=== PATIENT | female | born 1975 | race Caucasian/White ===

== ENCOUNTER → 2018-01-03 | Outpatient (CLI) | payer BC | END | disposition home or self-care (01) | LOC: SHCH 13:19 | PROVIDERS: ATTEND Internal Medicine Cardiovascular Disease | DX: R00.2 Palpitations (principal) | CPT/HCPCS: 93306 ==

== ENCOUNTER → 2021-04-15 | Outpatient (CLI) | payer BC | END | disposition home or self-care (01) | LOC: SHCH 15:34 | PROVIDERS: ATTEND Internal Medicine Cardiovascular Disease | DX: I08.0 Rheumatic disorders of both mitral and aortic valves (principal); I49.3 Ventricular premature depolarization | CPT/HCPCS: 93306; 93356 ==

== ENCOUNTER → 2025-04-10 | Outpatient (CLI) | payer BC | END | disposition home or self-care (01) | LOC: RAH 09:45 | PROVIDERS: ATTEND Obstetrics & Gynecology | DX: R92.2 Inconclusive mammogram (principal) | CPT/HCPCS: 76641; 77065 ==

== ENCOUNTER 2025-08-12 16:25 | Inpatient (IN) | payer BC ==
[~2025-08-12] VITALS: Ht 167.6 cm; Wt 65.4 kg
[2025-08-12 16:46] LABS: APPEARANCE,URINE CLOUDY (CLEAR); GLUCOSE, URINE (UA) NEGATIVE (NEGATIVE); LEUKOCYTE ESTERASE ,URINE NEGATIVE Leu/uL (NEGATIVE); NITRATE,URINE NEGATIVE (NEGATIVE); OCCULT BLOOD,URINE LARGE (NEGATIVE)
[2025-08-12 16:47] LABS: ADD UA MICROSCOPIC YES
[2025-08-12 16:49] LABS: SQUAMOUS EPITHELIAL CELL,UR RARE /HPF (0-2); UNCLASSIFIED CRYSTAL 1 /HPF (None Seen)
[2025-08-12] MEDS: 0.9%NACL 1000ML 1,000 ML IV ONE (17:03)
[2025-08-12 17:04] LABS: IMMATURE GRANULOCYTE ABSOLUTE 0.01 K/uL (0-1); NUCLEATED RED BLOOD CELLS 0.0 % (0.0-0.19); PLATELET COUNT (AUTO) 284 K/uL (130-400); RED BLOOD CELL COUNT(AUTO) 3.99 MIL/uL (4.00-5.50); RED CELL DISTRIBUTION WIDTH 12.8 % (11.0-15.5); WHITE BLOOD COUNT (AUTO) 4.7 K/uL (4.8-10.8)
[2025-08-12 17:09] LABS: CREATININE 0.7 mg/dL (0.5-1.0); GLOMERULAR FILTR. RATE CALC 105.0 mL/min (>90); GLUCOSE,RANDOM 91.0 mg/dL (70-105); SODIUM SERUM 139.0 mmol/L (136-145); UREA NITROGEN, BLOOD 13.0 mg/dL (7-18)
--- NOTE | 2025-08-12 17:12 | ERN ---
General Chief Complaint: Flank Pain Stated Complaint: FLANK PAIN Time Seen by MD: 16:26 Source: patient History of Present Illness Initial Comments PATIENT IS A 50-YEAR-OLD FEMALE COMING IN COMPLAINING OF RIGHT FLANK PAIN. PER PATIENT THIS PAIN BEGAN THREE DAYS AGO. PATIENT STATES THAT THE PAIN IS SHARP PRESENT IN THE RIGHT FLANK REGION RADIATES TO THE RIGHT INGUINAL AREA. Allergies: Coded Allergies: iodine (Unverified Allergy, Severe, RASH AND FEVER, 04/04/14) Past Medical History Past Medical History: Migraines Past Surgical History: Hysterectomy ROS Dictation CONSTITUTIONAL: NO CHILLS, NO FEVER, NO WEAKNESS, NO DIAPHORESIS, NO MALAISE. HEAD/FACE: NO SIGNS OF TRAUMA. EENT: NO EYE PAIN, NO BLURRED VISION, NO TEARING, NO DOUBLE VISION, NO EAR PAIN, NO EAR DISCHARGE, NO NOSE PAIN, NO NASAL CONGESTION, NO THROAT PAIN, NO THROAT SWELLING, NO MOUTH PAIN. RESPIRATORY: NO COUGH, NO ORTHOPNEA, NO SOB, NO STRIDOR, NO WHEEZING. CARDIOVASCULAR: NO CHEST PAIN, NO EDEMA, NO PALPITATIONS, NO SYNCOPE. GASTROINTESTINAL/ABDOMINAL: NO ABDOMINAL PAIN, NO CONSTIPATION, NO DIARRHEA, NO NAUSEA, NO VOMITING. GENITOURINARY: NO ABNORMAL DISCHARGE, NO DYSURIA, NO FREQUENT URINATION, NO HEMATURIA. NO COMPLAINTS OF PAIN IN THE GENITALS. MUSCULOSKELETAL: NO BACK PAIN, NO GOUT, NO JOINT PAIN, NO JOINT SWELLING, NO MUSCLE PAIN, NO MUSCLE STIFFNESS, NO NECK PAIN. INTEGUMENTARY: NO CHANGE IN COLOR, NO CHANGE IN HAIR/NAILS, NO DRYNESS, NO LESION, NO LUMPS, NO RASH. NEUROLOGICAL/PSYCH: NO ANXIETY, NOT DEPRESSED, NO EMOTIONAL PROBLEM, NO HE ADACHE, NO NUMBNESS, NO PRE-EXISTING DEFICIT, NO HISTORY OF SEIZURES, NO TREMORS, NO WEAKNESS. HEMATOLOGIC/LYMPHATIC: NOT ANEMIC, NO HISTORY OF BLOOD CLOTS, NO APPARENT BLEEDING, NO BRUISING, GLANDS NOT SWOLLEN. ALL SYSTEMS NEGATIVE, EXCEPT NOTED. Physical Exam Physical Exam Dictation VITAL SIGNS: REVIEWED. GENERAL APPEARANCE: ALERT, ORIENTED X3, NO ACUTE DISTRESS, OBESE. HEAD AND FACE: NON-TRAUMATIC. EYES: PERRL, PINK CONJUNCTIVAS, EYELID NO TRAUMA, ANTERIOR CHAMBER CLEAR. EARS: PINNAS INTACT AND NO SIGNS OF TRAUMA OR ERYTHEMA. EAR CANALS CLEAR AND NO DISCHARGE. TMS NO ERYTHEMA. NOSE: NO DISCHARGE, NO BLEEDING. OROPHARYNX: MOUTH NORMAL, TEETH NO CARIES, TONGUE PINK. PHARYNX CLEAR, NO ERYTHEMA. TONSILS NO EXUDATES, NO ABSCESSES NOTED. MUCOUS MEMBRANE MOIST. NECK: SUPPLE, NON-TENDER, NO THYROMEGALY, NO MASSES, NO JVD, NO BRUITS. BREAST: DEFERRED. CHEST: NO TENDERNESS, NO CREPITUS, NO PARADOXICAL MOVEMENT, NO RETRACTIONS. LUNGS: CLEAR, WELL-VENTILATED, SYMMETRIC, NO RALES, NO WHEEZING, NO RHONCHI, NO STRIDOR, GOOD BREATH SOUNDS BILATERALLY. HEART: REGULAR RATE, REGULAR RHYTHM, NO MURMUR, NO GALLOPS. VASCULAR: NO PERIPHERAL EDEMA. ABDOMEN: SOFT, POSITIVE BOWEL SOUNDS, NONDISTENDED, NO GUARDING, NONTENDER, NO REBOUND, NO MASSES NO HEPATOMEGALY, NO SPLENOMEGALY, NO WOOD'S SIGN, NO HERNIAS. RECTAL: DEFERRED. GENITAL: DEFERRED. NEUROLOGICAL: NORMAL SPEECH, GROSS MOTOR FUNCTION INTACT, GROSS SENSORY FUNCTION INTACT. MUSCULOSKELETAL: NECK NONTENDER, FULL RANGE OF MOTION, BACK NONTENDER, FULL RANGE OF MOTION. EXTREMITIES: NONTENDER, FULL RANGE OF MOTION. SKIN: COLOR PINK, DRY, NO TURGOR, NO RASH, NO LACERATIONS, NO ABRASIONS, NO CONTUSIONS. LYMPHATICS: DEFERRED. Results Laboratory and Microbiology Lab and Micro Result Laboratory Tests Test 08/12/25 16:40 08/12/25 16:55 Urine Color LIGHT-YELLOW (YELLOW) Urine Appearance CLOUDY (CLEAR) H Urine pH 7.0 (5.0-8.0) Urine Specific [place] 1.005 (1.001-1.031) Urine Protein NEGATIVE mg/dL (NEGATIVE) Urine Glucose (UA) NEGATIVE mg/dL (NEGATIVE) Urine Ketones NEGATIVE mg/dL (NEGATIVE) Urine Occult Blood LARGE (NEGATIVE) H Urine Nitrate NEGATIVE (NEGATIVE) Urine Bilirubin NEGATIVE mg/dL (NEGATIVE) Urine Urobilinogen 0.2 mg/dL (0.2-1.0) Urine Leukocyte Esterase NEGATIVE [place]/uL Urine RBC 51-100 /HPF (0-1) H Urine WBC 11-25 /HPF (0-1) H Urine Squamous Epithelial Cells RARE /HPF (0-2) Urine Other Crystals (Auto) 1 /HPF (None Seen) Urine Bacteria RARE /HPF (None Seen) White Blood Count 4.7 K/uL (4.8-10.8) L Red Blood Count 3.99 MIL/uL (4.00-5.50) L Hemoglobin 12.5 g/dL (12.0-16.0) Hematocrit 38.2 % (36-48) Mean Corpuscular Volume 95.7 fL (79-99) Mean Corpuscular Hemoglobin 31.3 pg (27.0-33.0) Mean Corpuscular Hemoglobin Concent 32.7 g/dL (32.0-36.0) Red Cell Distribution Width 12.8 % (11.0-15.5) Platelet Count 284 K/uL (130-400) Mean Platelet Volume 9.9 fL (7.5-10.5) Immature Granulocyte % (Auto) 0.2 % (0-1) Neutrophils (%) (Auto) 60.3 % (40.0-77.0) Lymphocytes (%) (Auto) 29.9 % (21.0-51.0) Monocytes (%) (Auto) 8.4 % (3.0-13.0) Eosinophils (%) (Auto) 0.6 % (0.0-8.0) Basophils (%) (Auto) 0.6 % (0.0-5.0) Neutrophils # (Auto) 2.8 K/uL (1.8-7.7) Lymphocytes # (Auto) 1.4 K/uL (1.0-4.8) Monocytes # (Auto) 0.4 K/uL (0.1-1.0) Eosinophils # (Auto) 0.03 K/uL (0.00-0.70) Basophils # (Auto) 0.03 K/uL (0.00-0.20) Absolute Immature Granulocyte (auto 0.01 K/uL (0-1) Nucleated Red Blood Cells 0.0 % (0.0-0.19) Sodium Level 139 mmol/L (136-145) Potassium Level 4.1 mmol/L (3.5-5.1) Chloride Level 102 mmol/L (101-111) Carbon Dioxide Level 28 mmol/L (21-32) Blood Urea Nitrogen 13 mg/dL (7-18) Creatinine 0.7 mg/dL (0.5-1.0) Glomerular Filtration Rate Calc 105 mL/min (>90) Random Glucose 91 mg/dL (70-105) Total Calcium 8.9 mg/dL (8.5-10.1) Labs Reviewed?: Yes EKG/XRAY/US/CT/MRI CT Scan Comment [facility] [address] [place] [address] IMAGING REPORT Signed PATIENT: VIANCA BENTON MR#: [id number] : 1975 SEX: F AGE: 50 LOCATION: [facility] ORDER 1630 STATUS: REG ER REPORT#: [id number] SERVICE 1629 REASON: ABD PAIN ORDERING PHYSICIAN: ESTER VILLEGAS MD PROCEDURE: ABD PEL WO - CT ABDOMEN/PELVIS W/O CONTRAST EXAM: CT Abdomen and Pelvis Without IV contrast CLINICAL HISTORY: ABD PAIN TECHNIQUE: Axial computed tomography images of the abdomen and pelvis without intravenous contrast. CONTRAST: No IV contrast. COMPARISON: None provided. FINDINGS: LUNG BASES: The visualized lung bases are clear. No pleural effusions or focal pulmonary lesions are seen. LIVER: Normal in size, shape, and attenuation. No focal hepatic lesion or intrahepatic biliary dilatation. GALLBLADDER AND BILE DUCTS: The gallbladder appears normal. No radio-opaque gallstones or pericholecystic fluid. No biliary ductal dilatation is seen. PANCREAS: Normal in size and contour. No focal lesion or peripancreatic inflammatory change. SPLEEN: Normal in size and density. No focal splenic lesions. ADRENAL GLANDS: Bilateral adrenal glands are normal in size and morphology. KIDNEYS, URETERS, AND BLADDER: The right kidney measures 9.1 ??? 5.4 cm and shows an upper pole calculus measuring 0.4 cm. The left kidney measures 10.3 ??? 5.0 cm and shows a lower pole calculus measuring 0.2 cm. There is mild left hydronephrosis due to a calculus measuring 0.7 cm at the left pelviureteric junction (PUJ). No perinephric fat stranding or cortical thinning is noted. The urinary bladder appears normal in outline and wall thickness. STOMACH AND BOWEL: Stomach and small bowel loops are unremarkable. The colon is mildly fecal loaded. No evidence of bowel obstruction, perforation, or colitis. APPENDIX: The appendix is normal in caliber with no periappendiceal inflammatory changes. PERITONEUM: No free intraperitoneal fluid or air. LYMPH NODES: No mesenteric, retroperitoneal, or pelvic lymphadenopathy. REPRODUCTIVE ORGANS: Uterus is not visualized, likely postoperative. No adnexal masses or pelvic fluid collections. VASCULATURE: Abdominal aorta and its major branches appear normal in caliber and course. No aneurysm or vascular calcification of significance. BONES: No acute or aggressive osseous abnormality. Visualized vertebrae and pelvic bones show normal alignment and density.IMPRESSION * Left pelviureteric junction calculus (0.7 cm) causing mild left hydronephrosis. * Bilatral kidney stones /[place] DICTATED BY: DINAH DUDLEY MD DATE: 08/12/251915 ELECTRONICALLY SIGNED BY: DINAH DUDLEY MD DATE: 08/12/251915 [facility] MDM: DIFFERENTIAL DIAGNOSIS: UVJ STONE, KIDNEY PAIN, RATIONALE: TESTS CONSIDERED AND ORDERED SECONDARY TO SHARED DECISION MAKING INCLUDE: PREVIOUS OUTSIDE RECORDS REVIEWED: OLD ER VISITS. RISK OF COMPLICATION AND/OR MORBIDITY OR MORTALITY OF PATIENT MANAGEMENT: NONE MEDICATIONS-PER MEDICATION RECONCILIATION NEED FOR HOSPITALIZATION: PATIENT DOES NOT MEET CRITERIA FOR HOSPITALIZATION. NEED FOR EMERGENCY MAJOR/MINOR SURGERY: NO THERE ARE NO SOCIAL CONCERNS WITH THIS PATIENT. PRESCRIPTION DRUG MANAGEMENT PRESCRIPTIONS WILL INCLUDE SYMPTOMATIC CARE PATIENT'S PRIOR EXTERNAL MEDICAL RECORDS FROM OTHER ER VISITS WERE REVIEWED BY ME INDICATED. PRIOR TESTING AND RESULTS FROM PREVIOUS VISITS WERE REVIEWED. PRIOR TESTS WERE TAKEN INTO ACCOUNT WITH MEDICAL DECISION MAKING AND RESOURCE UTILIZATION, INDEPENDENT HISTORIAN/HISTORIANS WERE USED TO OBTAIN COMPLETE MEDICAL HISTORY. I INDEPENDENTLY INTERPRETED THE TEST THAT WERE PERFORMED, RESULTS WERE REVIEWED BY ME AND CONSIDERED FINDINGS ON RADIOLOGY IF ORDERED. MEDICAL MANAGEMENT AND EXAMINATION INTERPRETATION DISCUSSIONS WERE HAD BY ME WITH OTHER QUALIFIED HEALTHCARE PROFESSIONALS INDICATED FOR THE PATIENT'S CARE. ADMITTED UNDER THE CARE OF HOSPITALIST GROUP FOR ONGOING MANAGEMENT OF PAIN. ED Course Orders Procedure Category Date Status Time Cbc With Differential LAB 08/12/25 Complete 16: Urinalysis Profile LAB 08/12/25 Complete 16:29 Ct Abdomen/Pelvis W/O CT 08/12/25 Resulted Contrast 16:29 Basic Metabolic Panel LAB 08/12/25 Complete 16:29 0.9%Nacl 1000ml (Ns PHA 08/12/25 Complete 1000ml) 16:30 Culture Urine ZAKIA 08/12/25 In Process 16:49 Ketorolac PHA 08/12/25 Complete Tromethamine 30mg/Ml 17:30 Current Medications Medications (Trade) Dose Ordered Sig/[place] Route PRN Reason Start Time Stop Time Status Last Admin Dose Admin Ketorolac Tromethamine (toRADol) 30 mg ONCE ONCE IVP 08/12/25 17:30 08/12/25 17:31 DC 08/12/25 17:12 Sodium Chloride 1,000 ml @ 0 mls/hr ONCE ONCE IV 08/12/25 16:30 08/12/25 16:32 DC 08/12/25 17:03 Vital Signs Date Time Temp Pulse Resp B/P (MAP) Pulse Ox O2 Delivery O2 Flow Rate FiO2 08/12/25 16:40 97.9 92 20 124/74 99 Room Air* 0 21 08/12/25 16:26 97.9 92 20 124/74 99 Room Air 0 DX & DISP Disposition: Inpatient Decision to Admit Time: 18:32 Departure Impression: Primary Impression: Ureterolithiasis Additional Impressions: Kidney pain, Intractable pain Condition: Stable Referrals: LEE ROLLINS MD (PCP) ESTER VILLEGAS MD Aug 12, 2025 17:12
--- NOTE | 2025-08-12 18:16 | HMCIMG ---
EXAM: CT Abdomen and Pelvis Without IV contrast CLINICAL HISTORY: ABD PAIN TECHNIQUE: Axial computed tomography images of the abdomen and pelvis without intravenous contrast. CONTRAST: No IV contrast. COMPARISON: None provided. FINDINGS: LUNG BASES: The visualized lung bases are clear. No pleural effusions or focal pulmonary lesions are seen. LIVER: Normal in size, shape, and attenuation. No focal hepatic lesion or intrahepatic biliary dilatation. GALLBLADDER AND BILE DUCTS: The gallbladder appears normal. No radio-opaque gallstones or pericholecystic fluid. No biliary ductal dilatation is seen. PANCREAS: Normal in size and contour. No focal lesion or peripancreatic inflammatory change. SPLEEN: Normal in size and density. No focal splenic lesions. ADRENAL GLANDS: Bilateral adrenal glands are normal in size and morphology. KIDNEYS, URETERS, AND BLADDER: The right kidney measures 9.1 ??? 5.4 cm and shows an upper pole calculus measuring 0.4 cm. The left kidney measures 10.3 ??? 5.0 cm and shows a lower pole calculus measuring 0.2 cm. There is mild left hydronephrosis due to a calculus measuring 0.7 cm at the left pelviureteric junction (PUJ). No perinephric fat stranding or cortical thinning is noted. The urinary bladder appears normal in outline and wall thickness. STOMACH AND BOWEL: Stomach and small bowel loops are unremarkable. The colon is mildly fecal loaded. No evidence of bowel obstruction, perforation, or colitis. APPENDIX: The appendix is normal in caliber with no periappendiceal inflammatory changes. PERITONEUM: No free intraperitoneal fluid or air. LYMPH NODES: No mesenteric, retroperitoneal, or pelvic lymphadenopathy. REPRODUCTIVE ORGANS: Uterus is not visualized, likely postoperative. No adnexal masses or pelvic fluid collections. VASCULATURE: Abdominal aorta and its major branches appear normal in caliber and course. No aneurysm or vascular calcification of significance. BONES: No acute or aggressive osseous abnormality. Visualized vertebrae and pelvic bones show normal alignment and density.IMPRESSION * Left pelviureteric junction calculus (0.7 cm) causing mild left hydronephrosis. * Bilatral kidney stones /[place]
--- NOTE | 2025-08-12 19:30 | NUR ---
PT CARE ASSUMED AT THIS TIME
[2025-08-12] MEDS ORDERED: MAGNESIUM 2GM PREMIX 50ML 50 ML IV PRN (20:00)
[2025-08-12] MEDS ORDERED: PoTASSium chl 10% ELIXIR 20MEQ 20 MEQ/15 ML UDCUP PO PRN (20:00)
[2025-08-12] MEDS ORDERED: PoTASSium chloRIDE 20MEQ ER 20 MEQ ERTAB PO PRN (20:00)
--- NOTE | 2025-08-12 20:04 | NUR ---
COMMERCIAL ACCOUNTANT DON DON NOTFIED ABOUT PT'S RIGHT FLANK PAIN LEVEL OF 8/10. PT SHOWS NO SIGNS OF DISTRESS. EVEN AND UNLABORED BREATHING. PENDING MEDICATION ORDER.
--- NOTE | 2025-08-12 20:07 | HP ---
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 Seen and examined patient in the ER awake,alert and coherent ,appears uncomfortable continue to complain of 5/10 pain level to right flank area. Patient denies fever, chills, vomiting, chest pain, palpitation and shortness of breaths. Latest vital signs temperature 98.2, heart rate 88, blood pressure 131/68 saturation 100% on room air. Labs: WBC four, hemoglobin 12, hematocrit 38 platelet count 284. Chemistry is normal. Urinalysis remarkable appearance is cloudy, large urine occult blood, urine RBC 51-100 & urine WBC 11-25. Abdomen and pelvis without contrast result revealed left pelviureteric junction calculus 0.7 causing mild left hydronephrosis. Bilateral kidney stones. The ER patient received 1 L NS bolus, Toradol 30 mg IV Zosyn. We will admit patient for further medical management. REVIEW OF SYSTEMS CONSTITUTIONAL: Denies fevers, chills, or night sweats. No unintentional weight loss reported. NEUROLOGICAL: Denies headache, amaurosis fugax, motor weakness, sensory deficit, vertigo/spinning sensation, gait abnormalities, or tremors. ENT: No hearing loss, otalgia, otorrhea, rhinitis, rhinorrhea, hoarseness, or sore throat. CARDIOVASCULAR: Denies any exertional angina, dyspnea on exertion, orthopnea, paroxysmal nocturnal dyspnea, palpitations, life-threatening arrhythmias, steve dication. PULMONARY: Denies any shortness of breath, cough, phlegm/sputum, hemoptysis, pleuritic chest pain. SLEEP: Denies morning headaches, daytime somnolence or napping. Denies difficulty falling asleep, staying asleep, waking from sleep. Denies knowledge of snoring. GASTROINTESTINAL: Nausea Denies any type of dysphagia to either liquids or solids. Denies vomiting, pyrosis, early satiety, abdominal pain, diarrhea, constipation, or changes in stool consistency or caliber. Denies coffee-ground emesis, hematemesis, hematochezia, or melanotic stools. GENITOURINARY: Complained of right Flank pain and tea-colored urine Denies frequency, urgency, nocturia, hematuria or incontinence (Storage/Irritative symptoms.) Low urinary stream, straining to void, urinary intermittency or h esitancy, splitting of the voiding stream, terminal dribbling. ENDOCRINOLOGIC: Denies polyuria, polydipsia, polyphagia or heat/cold intolerances. HEMATOLOGIC: Denies thrombophilia/previous clots, or coagulopathy/bleeding disorders. ONCOLOGIC: Denies personal history of malignancy. DERMATOLOGIC: Denies rashes or pruritus. PSYCHIATRIC: Denies any suicidal or homicidal ideation. Denies hallucinations. PAST MEDICAL HISTORY: [ Migraines, hypertension and depression ] PAST SURGICAL HISTORY: [ x1 partial and hysterectomy ] PAST SOCIAL HISTORY: [ Patient lives with mother and son . Patient denies alcohol tobacco and recreational drug use ] FAMILY HISTORY: [ Noncontributory ] Coded Allergies: iodine (Unverified Allergy, Severe, RASH AND FEVER, 04/04/14) PHYSICAL EXAM GENERAL APPEARANCE: The patient is awake, alert, and oriented, in no acute cardiopulmonary distress. NEUROLOGICAL: Cranial nerves II-XII grossly intact. Motor is 5/5 in bilateral upper and lower extremities proximal to distal. No sensory deficits. HEENT: Face is symmetric. Pupils are equal and reactive. Extraocular movements are intact. NECK: Supple. No JVD. No thyromegaly. No submental, submandibular, pre- /postauricular, occipital or supraclavicular lymphadenopathy. CHEST: Normal chest expansion. No Telemetry. LUNGS: Absence of any rales, rhonchi or any wheezing. CARDIOVASCULAR: Regular. S1 and S2 normal. No appreciable rubs, murmurs or gallops. ABDOMEN: Soft, nontender, and nondistended. There is no rebound, voluntary guarding, or rigidity. : Deferred. No [place]. EXTREMITIES: Non-edematous and not cyanotic. No clubbing. Good capillary refill. SKIN: No skin breakdown. Vital Sign (Last 24 Hours) 08/12/25 19:30 Temp 98.2 Pulse 88 Resp 17 B/P (MAP) 131/68 Pulse Ox 100 O2 Delivery Room Air* O2 Flow Rate 0 FiO2 21 LABS: Laboratory: Test 08/12/25 16:55 08/12/25 16:40 Range/Units White Blood Count 4.7 L 4.8-10.8 K/uL Red Blood Count 3.99 L 4.00-5.50 MIL/uL Hemoglobin 12.5 12.0-16.0 g/dL Hematocrit 38.2 36-48 % Mean Corpuscular Volume 95.7 79-99 fL Mean Corpuscular Hemoglobin 31.3 27.0-33.0 pg Mean Corpuscular Hemoglobin Concent 32.7 32.0-36.0 g/dL Red Cell Distribution Width 12.8 11.0-15.5 % Platelet Count 284 130-400 K/uL Mean Platelet Volume 9.9 7.5-10.5 fL Immature Granulocyte % (Auto) 0.2 0-1 % Neutrophils (%) (Auto) 60.3 40.0-77.0 % Lymphocytes (%) (Auto) 29.9 21.0-51.0 % Monocytes (%) (Auto) 8.4 3.0-13.0 % Eosinophils (%) (Auto) 0.6 0.0-8.0 % Basophils (%) (Auto) 0.6 0.0-5.0 % Neutrophils # (Auto) 2.8 1.8-7.7 K/uL Lymphocytes # (Auto) 1.4 1.0-4.8 K/uL Monocytes # (Auto) 0.4 0.1-1.0 K/uL Eosinophils # (Auto) 0.03 0.00-0.70 K/uL Basophils # (Auto) 0.03 0.00-0.20 K/uL Absolute Immature Granulocyte (auto 0.01 0-1 K/uL Nucleated Red Blood Cells 0.0 0.0-0.19 % Sodium Level 139 136-145 mmol/L Potassium Level 4.1 3.5-5.1 mmol/L Chloride Level 102 101-111 mmol/L Carbon Dioxide Level 28 21-32 mmol/L Blood Urea Nitrogen 13 7-18 mg/dL Creatinine 0.7 0.5-1.0 mg/dL Glomerular Filtration Rate Calc 105 >90 mL/min Random Glucose 91 70-105 mg/dL Total Calcium 8.9 8.5-10.1 mg/dL Urine Color LIGHT-YELLOW YELLOW Urine Appearance CLOUDY H CLEAR Urine pH 7.0 5.0-8.0 Urine Specific [place] 1.005 1.001-1.031 Urine Protein NEGATIVE NEGATIVE mg/dL Urine Glucose (UA) NEGATIVE NEGATIVE mg/dL Urine Ketones NEGATIVE NEGATIVE mg/dL Urine Occult Blood LARGE H NEGATIVE Urine Nitrate NEGATIVE NEGATIVE Urine Bilirubin NEGATIVE NEGATIVE mg/dL Urine Urobilinogen 0.2 0.2-1.0 mg/dL Urine Leukocyte Esterase NEGATIVE NEGATIVE [place]/uL Urine RBC 51-100 H 0-1 /HPF Urine WBC 11-25 H 0-1 /HPF Urine Squamous Epithelial Cells RARE 0-2 /HPF Urine Other Crystals (Auto) 1 None Seen /HPF Urine Bacteria RARE None Seen /HPF DIAGNOSTICS / RADIOLOGY: [ ] ASSESSMENT: Bilateral kidney stones with left hydronephrosis POA Intractable right flank pain POA Suspected urinary tract infection POA Hypertension POA Depression POA PLAN: We will admit patient in medical surgical We will start on heart healthy diet We will start Rocephin 1 g IV b.i.d. for empiric coverage We will start NS @ 100 ml / hr x one bag and re evaluate Start famotidine 20 mg p.o. daily for GI prophylaxis We will replace electrolytes as needed per protocol We will add prn medication for fever,pain,cough , nausea and vomiting We will reconcile home meds once medlist available We will seek Urology consultation We will request labs in am Further orders to follow depending on above results Case discussed with attending physician and came up with above treatment and plan of care. ADVANCED CARE PLANNING 1. Which of the following were discussed? Hospice Care - No Therapeutic options - Yes Advance Directives - No Other discussions - 2. Discussed with who? Patient 3. Voluntary nature of this service was explained to the patient? Yes 4. Amount of time spent - __20 min 5. Reviewed by Physician? (if this service was performed by NPP) Yes Patient seen and examined by me. Agree with note by BOX SEALING INSPECTOR SEE ADDITIONAL ORDERS PER CHART DISCUSSED WITH NURSING STAFF TIRSO TOMPKINSP Aug 12, 2025 20:07
[2025-08-12] MEDS: HYDROcodone/APAP 5/325 1 TAB TABLET PO ONE (20:27)
[2025-08-12] MEDS: 0.9%NACL 1000ML 1,000 ML IV SCH (20:28)
--- NOTE | 2025-08-12 23:18 | NUR ---
ATTEMPT TO GIVE REPORT AT THIS TIME. NOT SUCCESSFUL.
[2025-08-13] VITALS (8 sets, daily range): BP systolic 104–124; BP diastolic 68–86; PULSE 62–79; RESP 14–18; TEMP 97.7–99; O2SAT 96
--- NOTE | 2025-08-13 00:15 | NUR ---
REPORT GIVEN TO NURSE MONROE AT THIS TIME
[2025-08-13 03:50] LABS: IMMATURE GRANULOCYTE ABSOLUTE 0.02 K/uL (0-1); NUCLEATED RED BLOOD CELLS 0.0 % (0.0-0.19); PLATELET COUNT (AUTO) 207 K/uL (130-400); RED BLOOD CELL COUNT(AUTO) 3.35 MIL/uL (4.00-5.50); RED CELL DISTRIBUTION WIDTH 12.9 % (11.0-15.5); WHITE BLOOD COUNT (AUTO) 4.8 K/uL (4.8-10.8)
[2025-08-13 04:00] LABS: INR 1.01 (0.85-1.15)
[2025-08-13 04:31] LABS: ASPARTATE AMINOTRANSFERASE 23.0 U/L (10-37); CREATININE 0.7 mg/dL (0.5-1.0); GLOMERULAR FILTR. RATE CALC 105.0 mL/min (>90); GLUCOSE,RANDOM 86.0 mg/dL (70-105); SODIUM SERUM 137.0 mmol/L (136-145); TOTAL PROTEIN, SERUM 5.7 g/dL (6.0-8.3); UREA NITROGEN, BLOOD 12.0 mg/dL (7-18)
[2025-08-13] MEDS ORDERED: EREN70AU2 SQ (08:09)
[2025-08-13] MEDS ORDERED: VIT1CAPS47 PO ×2 (08:09)
[2025-08-13] MEDS ORDERED: BUPR-49 PO (08:09)
[2025-08-13] MEDS ORDERED: FOLI-74 PO (08:09)
[2025-08-13] MEDS ORDERED: AMPH30CA PO (08:09)
[2025-08-13] MEDS ORDERED: RIME75TA PO (08:09)
[2025-08-13] MEDS ORDERED: ESTR1PAT TD (08:09)
[2025-08-13] MEDS ORDERED: DOCU-116 PO (08:09)
[2025-08-13] MEDS ORDERED: METO-408 PO (08:09)
[2025-08-13] MEDS ORDERED: CA C1TAB99 PO (08:09)
[2025-08-13] MEDS ORDERED: BUSP30TA2 PO (08:09)
[2025-08-13] MEDS ORDERED: VITA1CAP8 PO (08:09)
[2025-08-13] MEDS ORDERED: DULO60CA64 PO (08:09)
[2025-08-13] MEDS ORDERED: PROG200C11 PO (08:09)
[2025-08-13] MEDS ORDERED: CHOL125C6 PO (08:09)
[2025-08-13] MEDS ORDERED: VILO150C PO (08:09)
[2025-08-13] MEDS ORDERED: VITA800012 PO (08:09)
[2025-08-13] MEDS: FAMOTIDINE 20MG TAB PO SCH (09:51)
--- NOTE | 2025-08-13 13:27 | PN ---
[facility] PROGRESS NOTE Date of Service: Aug 13, 2025 Time of Service: 13:25 SUBJECTIVE: 08/13 patient is seen and examined at bedside, case discussed with the RN, no acute events overnight, the time of my visit she is comfortably in bed, alert oriented x3, getting IV fluids, IV antibiotics. Results of CT of the abdomen reviewed, discussed with the patient in detail, all questions answered, the patient understood the information provided. Urology has been consulted, we will follow input and recommendations. CT abdomen and pelvis reported as follows: IMPRESSION * Left pelviureteric junction calculus (0.7 cm) causing mild left hydronephrosis. * Bilatral kidney stones REVIEW OF SYSTEMS CONSTITUTIONAL: Denies fevers, chills, or night sweats. No unintentional weight loss reported. NEUROLOGICAL: Denies headache, amaurosis fugax, motor weakness, sensory deficit, vertigo/spinning sensation, gait abnormalities, or tremors. ENT: No hearing loss, otalgia, otorrhea, rhinitis, rhinorrhea, hoarseness, or sore throat. CARDIOVASCULAR: Denies any exertional angina, dyspnea on exertion, orthopnea, paroxysmal nocturnal dyspnea, palpitations, life-threatening arrhythmias, claudication. PULMONARY: Denies any shortness of breath, cough, phlegm/sputum, hemoptysis, pleuritic chest pain. SLEEP: Denies morning headaches, daytime somnolence or napping. Denies difficulty falling asleep, staying asleep, waking from sleep. Denies knowledge of snoring. GASTROINTESTINAL: Nausea Denies any type of dysphagia to either liquids or solids. Denies vomiting, pyrosis, early satiety, abdominal pain, diarrhea, constipation, or changes in stool consistency or caliber. Denies coffee-ground emesis, hematemesis, hematochezia, or melanotic stools. GENITOURINARY: Complained of right Flank pain and tea-colored urine Denies frequency, urgency, nocturia, hematuria or incontinence (Storage/Irritative symptoms.) Low urinary stream, straining to void, urinary intermittency or hesitancy, splitting of the voiding stream, terminal dribbling. ENDOCRINOLOGIC: Denies polyuria, polydipsia, polyphagia or heat/cold intolerances. HEMATOLOGIC: Denies thrombophilia/previous clots, or coagulopathy/bleeding disorders. ONCOLOGIC: Denies personal history of malignancy. DERMATOLOGIC: Denies rashes or pruritus. PSYCHIATRIC: Denies any suicidal or homicidal ideation. Denies hallucinations. PHYSICAL EXAM GENERAL APPEARANCE: The patient is awake, alert, and oriented, in no acute cardiopulmonary distress. NEUROLOGICAL: Cranial nerves II-XII grossly intact. Motor is 5/5 in bilateral upper and lower extremities proximal to distal. No sensory deficits. HEENT: Face is symmetric. Pupils are equal and reactive. Extraocular movements are intact. NECK: Supple. No JVD. No thyromegaly. No submental, submandibular, pre- /postauricular, occipital or supraclavicular lymphadenopathy. CHEST: Normal chest expansion. No Telemetry. LUNGS: Absence of any rales, rhonchi or any wheezing. CARDIOVASCULAR: Regular. S1 and S2 normal. No appreciable rubs, murmurs or gallops. ABDOMEN: Soft, nontender, and nondistended. There is no rebound, voluntary guarding, or rigidity. : Deferred. No [place]. EXTREMITIES: Non-edematous and not cyanotic. No clubbing. Good capillary refill. SKIN: No skin breakdown. Vital Signs (last 8hr) Date Time Temp Pulse Resp B/P (MAP) Pulse Ox O2 Delivery O2 Flow Rate FiO2 08/13/25 13:12 99.0 78 16 116/75 96 Room Air 08/13/25 08:08 98.1 76 14 109/73 96 Room Air LABS: Laboratory: Test 08/13/25 03:31 08/12/25 16:40 Range/Units White Blood Count 4.8 4.8-10.8 K/uL Red Blood Count 3.35 L 4.00-5.50 MIL/uL Hemoglobin 10.7 L 12.0-16.0 g/dL Hematocrit 32.8 L 36-48 % Mean Corpuscular Volume 97.9 79-99 fL Mean Corpuscular Hemoglobin 31.9 27.0-33.0 pg Mean Corpuscular Hemoglobin Concent 32.6 32.0-36.0 g/dL Red Cell Distribution Width 12.9 11.0-15.5 % Platelet Count 207 # 130-400 K/uL Mean Platelet Volume 9.7 7.5-10.5 fL Immature Granulocyte % (Auto) 0.4 0-1 % Neutrophils (%) (Auto) 53.7 40.0-77.0 % Lymphocytes (%) (Auto) 32.6 21.0-51.0 % Monocytes (%) (Auto) 11.2 3.0-13.0 % Eosinophils (%) (Auto) 1.7 0.0-8.0 % Basophils (%) (Auto) 0.4 0.0-5.0 % Neutrophils # (Auto) 2.6 1.8-7.7 K/uL Lymphocytes # (Auto) 1.6 1.0-4.8 K/uL Monocytes # (Auto) 0.5 0.1-1.0 K/uL Eosinophils # (Auto) 0.08 0.00-0.70 K/uL Basophils # (Auto) 0.02 0.00-0.20 K/uL Absolute Immature Granulocyte (auto 0.02 0-1 K/uL Nucleated Red Blood Cells 0.0 0.0-0.19 % Prothrombin Time 10.7 9.6-11.6 SEC Prothromb Time International Ratio 1.01 0.85-1.15 Activated Partial Thromboplast Time 27.6 26.3-35.5 SEC Sodium Level 137 136-145 mmol/L Potassium Level 3.9 3.5-5.1 mmol/L Chloride Level 104 101-111 mmol/L Carbon Dioxide Level 29 21-32 mmol/L Blood Urea Nitrogen 12 7-18 mg/dL Creatinine 0.7 0.5-1.0 mg/dL Glomerular Filtration Rate Calc 105 >90 mL/min Random Glucose 86 70-105 mg/dL Total Calcium 7.9 L 8.5-10.1 mg/dL Magnesium Level 1.90 1.80-2.40 mg/dL Total Bilirubin 0.3 0.2-1.0 mg/dL Aspartate Amino Transf (AST/SGOT) 23 10-37 U/L Alanine Aminotransferase (ALT/SGPT) 21 12-78 U/L Alkaline Phosphatase 45 L 50-136 U/L Total Protein 5.7 L 6.0-8.3 g/dL Albumin 2.9 L 3.5-5.0 g/dL Urine Color LIGHT-YELLOW YELLOW Urine Appearance CLOUDY H CLEAR Urine pH 7.0 5.0-8.0 Urine Specific [place] 1.005 1.001-1.031 Urine Protein NEGATIVE NEGATIVE mg/dL Urine Glucose (UA) NEGATIVE NEGATIVE mg/dL Urine Ketones NEGATIVE NEGATIVE mg/dL Urine Occult Blood LARGE H NEGATIVE Urine Nitrate NEGATIVE NEGATIVE Urine Bilirubin NEGATIVE NEGATIVE mg/dL Urine Urobilinogen 0.2 0.2-1.0 mg/dL Urine Leukocyte Esterase NEGATIVE NEGATIVE [place]/uL Urine RBC 51-100 H 0-1 /HPF Urine WBC 11-25 H 0-1 /HPF Urine Squamous Epithelial Cells RARE 0-2 /HPF Urine Other Crystals (Auto) 1 None Seen /HPF Urine Bacteria RARE None Seen /HPF Current Medications Medications (Trade) Dose Ordered Sig/Harl[place] Route PRN Reason Start Time Stop Time Status Last Admin Dose Admin Acetaminophen (TYLenol 325MG TAB) 650 mg Q4H PRN PO MILD PAIN (1-3) 08/12/25 20:00 09/11/25 19:59 Acetaminophen (TYLenol 325MG TAB) 650 mg Q6H PRN PO TEMPERATURE GREATER THAN 101.5 08/12/25 20:00 09/11/25 19:59 Bupropion HCl (WellBUTrin SR 150MG) 150 mg AM PO 08/14/25 09:00 09/13/25 08:59 Ceftriaxone Sodium (ROCEphine 1G INJ) 1 gm BID IV 08/12/25 21:00 08/22/25 20:59 08/13/25 09:51 1 GM Docusate Sodium (COLace 100MG CAP) 100 mg DAILY PO 08/14/25 09:00 09/13/25 08:59 Duloxetine HCl (CymbALTA 30 mg CAP) 60 mg AM PO 08/14/25 09:00 09/13/25 08:59 Famotidine (Pepcid 20mg Tab) 20 mg DAILY PO 08/13/25 09:00 09/12/25 08:59 08/13/25 09:51 20 MG Home Med (Home Medication) AM PO 08/14/25 09:00 09/13/25 08:59 Home Med (Home Medication) BID PO 08/13/25 21:00 09/12/25 20:59 Home Med (Home Medication) BIDAC PO 08/13/25 16:30 09/12/25 16:29 Home Med (Home Medication) DAILY PO 08/14/25 09:00 09/13/25 08:59 Home Med (Home Medication) DAILY PO 08/14/25 09:00 09/13/25 08:59 Home Med (Home Medication) DAILY PO 08/14/25 09:00 09/13/25 08:59 Home Med (Home Medication) DAILY PO 08/14/25 09:00 09/13/25 08:59 Home Med (Home Medication) DAILY PO 08/14/25 09:00 09/13/25 08:59 Home Med (Home Medication) (Dextroamphetamine/ Amphetamine (A... AM PO 08/14/25 09:00 09/13/25 08:59 Home Med (Home Medication) (Progesterone,Micronized (Progesterone) 20... PM PO 08/13/25 21:00 09/12/25 20:59 Home Med (Home Medication) (Viloxazine HCl (Qelbr... PM PO 08/13/25 21:00 09/12/25 20:59 Ketorolac Tromethamine (toRADol) 15 mg Q6H PRN IM MODERATE PAIN (4-6) 08/12/25 20:00 08/17/25 19:59 08/13/25 09:51 15 MG Magnesium Sulfate 50 ml @ 0 mls/hr PROTOCOL PRN IV OTHER [SEE ORDER COMMENTS] 08/12/25 20:00 09/11/25 19:59 Metoprolol Succinate (TopROL XL) 25 mg AM PO 08/14/25 09:00 09/13/25 08:59 Ondansetron HCl (zoFRAN 4MG INJ) 4 mg Q6H PRN IV NAUSEA/VOMITING 08/12/25 20:00 09/11/25 19:59 Potassium Chloride 100 ml @ 100 mls/hr AD PRN IV POTASSIUM PROTOCOL 08/12/25 20:00 09/11/25 19:59 Potassium Chloride (K-Dur/Klor-Con 20meq) 20 meq AD PRN PO POTASSIUM PROTOCOL 08/12/25 20:00 09/11/25 19:59 Potassium Chloride (KCl 10% Elixir 20meq/15ml) 20 meq AD PRN PO POTASSIUM PROTOCOL 08/12/25 20:00 09/11/25 19:59 Sodium Chloride 1,000 ml @ 100 mls/hr Q10H IV 08/12/25 20:00 09/11/25 19:59 08/12/25 20:28 100 MLS/HR DIAGNOSTICS / RADIOLOGY: [ ] ASSESSMENT: Bilateral kidney stones with left hydronephrosis POA Intractable right flank pain POA Suspected urinary tract infection POA Hypertension POA Depression POA PLAN: Patient remains admitted to medical floor Continue on heart healthy diet Continue Rocephin 1 g IV b.i.d. for empiric coverage Continue NS @ 100 ml / hr x one bag and re evaluate Continue famotidine 20 mg p.o. daily for GI prophylaxis We will replace electrolytes as needed per protocol We will add prn medication for fever,pain,cough , nausea and vomiting Home medications reviewed and reconciled Consulted urologist, we will follow input and recommendation We will request labs in am Further orders to follow depending on above results Plan of action discussed, all questions answered, agreed and understood the information provided. LUTHER HAMPTON MD Aug 13, 2025 13:27
--- NOTE | 2025-08-13 14:46 | NUR ---
DCP:HOME Pt currently lives at home with her mom and son. Pt denies having any DME, home health, or provider services. Pt states that she can complete ADLs independently. PCP is Dr. Sascha Orellana and uses [facility] for any RX needs. At [place] pt will want to go home and family can assist with transportation. Addendum: 08/13/25 at 1448 by JONATHAN JIMENES SS Amended: Links added.
[2025-08-13] MEDS: [UNRECOGNIZED DRUG - OTHER] PO SCH (15:28)
[2025-08-13] MEDS: BUSPIRONE HCL 30 MG PO SCH (21:00)
[2025-08-13] MEDS: (Progesterone,Micronized (Progesterone) 200 MG) PO SCH (21:00)
--- NOTE | 2025-08-13 22:28 | CONS ---
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 Patient states she initially had left flank pain 1.5 weeks ago and she noticed her urine was tea colored and had intermittent lower abdominal pain symptoms and her urine was cleared for the past 2 days and today she started having right flank pain and her urine is tea colored again .Pain intensity was so severe and becoming more frequent so she decided to come to the ED for evaluation. In the ER awake,alert and coherent ,appears uncomfortable continue to complain of 5/10 pain level to right flank area. Patient denies fever, chills, vomiting, chest pain, palpitation and shortness of breaths. Latest vital signs temperature 98.2, heart rate 88, blood pressure 131/68 saturation 100% on room air. Labs: WBC four, hemoglobin 12, hematocrit 38 platelet count 284. Chemistry is normal. Urinalysis remarkable appearance is cloudy, large urine occult blood, urine RBC 51-100 & urine WBC 11-25. Abdomen and pelvis without contrast result revealed left pelviureteric junction calculus 0.7 causing mild left hydronephrosis. Bilateral kidney stones. The ER patient received 1 L NS bolus, Toradol 30 mg IV Zosyn. REVIEW OF SYSTEMS CONSTITUTIONAL: Denies fever, chills, or fatigue. HEAD/FACE: No signs of trauma. EENT: Denies eye pain, blurred vision, double vision, or light sensitivity. RESPIRATORY: Denies shortness of breath, cough, wheezing CARDIOVASCULAR: Denies chest pain, palpitation, syncope GASTROINTESTINAL/ABDOMINAL: Denies abdominal pain, constipation, diarrhea, nausea or vomiting GENITOURINARY: Denies dysuria, endorses hematuria. MUSCULOSKELETAL: Denies joint pain, tenderness, or trauma. INTEGUMENTARY: Denies rash or itchiness NEUROLOGICAL/PSYCH: Denies anxiety, depression, heat or cold intolerance. 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 Pupils equal and reactive. HENT: No oral thrush seen, moist Oral mucosa NECK: Supple, no JVD or thyromegaly. LUNGS: Good air entry. No rales, no rhonchi. CARDIOVASCULAR: S1, S2 regular. No murmur heard. ABDOMEN: Soft, non tender, bowel sounds present, no organomegaly CENTRAL NERVOUS SYSTEM: Awake, alert, oriented x 3. No focal deficits. SKIN: No rashes, no swelling. LYMPHATICS: No peripheral lymphadenopathy MUSCULOSKELETAL: No joint swelling, erythema or tenderness. EXTREMITIES: No cyanosis or clubbing BACK: No deformity, no pressure ulcer. GENITOURINARY: Normal genitalia Vital Sign (Last 24 Hours) 08/13/25 08/13/25 08:00 19:45 Temp 98.2 Pulse 71 Resp 18 B/P (MAP) 104/68 Pulse Ox 98 O2 Delivery Room Air O2 Flow Rate 0 FiO2 21 Intake & Output (last 24hrs) 08/12/25 08/12/25 08/13/25 15:00 23:00 07:00 Intake Total 600.0 ml Balance 600.0 ml LABS: Laboratory: Test 08/13/25 03:31 08/12/25 16:40 Range/Units White Blood Count 4.8 4.8-10.8 K/uL Red Blood Count 3.35 L 4.00-5.50 MIL/uL Hemoglobin 10.7 L 12.0-16.0 g/dL Hematocrit 32.8 L 36-48 % Mean Corpuscular Volume 97.9 79-99 fL Mean Corpuscular Hemoglobin 31.9 27.0-33.0 pg Mean Corpuscular Hemoglobin Concent 32.6 32.0-36.0 g/dL Red Cell Distribution Width 12.9 11.0-15.5 % Platelet Count 207 # 130-400 K/uL Mean Platelet Volume 9.7 7.5-10.5 fL Immature Granulocyte % (Auto) 0.4 0-1 % Neutrophils (%) (Auto) 53.7 40.0-77.0 % Lymphocytes (%) (Auto) 32.6 21.0-51.0 % Monocytes (%) (Auto) 11.2 3.0-13.0 % Eosinophils (%) (Auto) 1.7 0.0-8.0 % Basophils (%) (Auto) 0.4 0.0-5.0 % Neutrophils # (Auto) 2.6 1.8-7.7 K/uL Lymphocytes # (Auto) 1.6 1.0-4.8 K/uL Monocytes # (Auto) 0.5 0.1-1.0 K/uL Eosinophils # (Auto) 0.08 0.00-0.70 K/uL Basophils # (Auto) 0.02 0.00-0.20 K/uL Absolute Immature Granulocyte (auto 0.02 0-1 K/uL Nucleated Red Blood Cells 0.0 0.0-0.19 % Prothrombin Time 10.7 9.6-11.6 SEC Prothromb Time International Ratio 1.01 0.85-1.15 Activated Partial Thromboplast Time 27.6 26.3-35.5 SEC Sodium Level 137 136-145 mmol/L Potassium Level 3.9 3.5-5.1 mmol/L Chloride Level 104 101-111 mmol/L Carbon Dioxide Level 29 21-32 mmol/L Blood Urea Nitrogen 12 7-18 mg/dL Creatinine 0.7 0.5-1.0 mg/dL Glomerular Filtration Rate Calc 105 >90 mL/min Random Glucose 86 70-105 mg/dL Total Calcium 7.9 L 8.5-10.1 mg/dL Magnesium Level 1.90 1.80-2.40 mg/dL Total Bilirubin 0.3 0.2-1.0 mg/dL Aspartate Amino Transf (AST/SGOT) 23 10-37 U/L Alanine Aminotransferase (ALT/SGPT) 21 12-78 U/L Alkaline Phosphatase 45 L 50-136 U/L Total Protein 5.7 L 6.0-8.3 g/dL Albumin 2.9 L 3.5-5.0 g/dL Urine Color LIGHT-YELLOW YELLOW Urine Appearance CLOUDY H CLEAR Urine pH 7.0 5.0-8.0 Urine Specific [place] 1.005 1.001-1.031 Urine Protein NEGATIVE NEGATIVE mg/dL Urine Glucose (UA) NEGATIVE NEGATIVE mg/dL Urine Ketones NEGATIVE NEGATIVE mg/dL Urine Occult Blood LARGE H NEGATIVE Urine Nitrate NEGATIVE NEGATIVE Urine Bilirubin NEGATIVE NEGATIVE mg/dL Urine Urobilinogen 0.2 0.2-1.0 mg/dL Urine Leukocyte Esterase NEGATIVE NEGATIVE Magalie/uL Urine RBC 51-100 H 0-1 /HPF Urine WBC 11-25 H 0-1 /HPF Urine Squamous Epithelial Cells RARE 0-2 /HPF Urine Other Crystals (Auto) 1 None Seen /HPF Urine Bacteria RARE None Seen /HPF DIAGNOSTICS / RADIOLOGY: CT abdomen and pelvis without intravenous contrast (stone protocol) confirmed a7 mm left UPJ calculus with hydronephrosis in the renal pelvis, there is a 4 mm nonobstructing right upper pole calculus. Both stones visualized on crystal slicer imaging. ASSESSMENT: 50-year-old female dealing with intermittent right UPJ obstruction caused by7 mm calculus since May of this year presents with a an acute obstruction active symptoms PLAN: 1. We had a long conversation today about natural progression of these kinds of intermittently obstructing UPJ calculi. We talked about treatment options. Patient is interested in stone treatment. Shockwave lithotripsy even though not 100% successful, is a good starting point as it has a very minimal risk as opposed to instrumentation via ureteroscopy. At this point we will be planning to put patient on the schedule for shockwave lithotripsy at one of the facilities in [place] next week. 2. In order for patient to leave the hospital she would need an adequate amount of pain medication supplies, a mixture of narcotics and NSAIDs such as Ketoralac, tamsulosin, Levsin etcetera. 3. Thank you for involving us in the care of this patient. 60 minutes spent to complete this visit more than half of the time spent in counseling and coordination of care and addressing questions posed by patient, some time was spent discussing with members of her care team, the rest of the time was spent reviewing medical records including laboratory data, imaging studies and the entire chart even prior to meeting with the patient. JAY JAY KHANNA MD Aug 13, 2025 22:27
[2025-08-14 02:29] LABS: NUCLEATED RED BLOOD CELLS 0.0 % (0.0-0.19); PLATELET COUNT (AUTO) 249.0 K/uL (130-400); RED BLOOD CELL COUNT(AUTO) 3.66 MIL/uL (4.00-5.50); RED CELL DISTRIBUTION WIDTH 12.9 % (11.0-15.5); WHITE BLOOD COUNT (AUTO) 4.9 K/uL (4.8-10.8)
[2025-08-14 02:48] LABS: ASPARTATE AMINOTRANSFERASE 20.0 U/L (10-37); CREATININE 0.8 mg/dL (0.5-1.0); GLOMERULAR FILTR. RATE CALC 90.0 mL/min (>90); GLUCOSE,RANDOM 92.0 mg/dL (70-105); SODIUM SERUM 139.0 mmol/L (136-145); TOTAL PROTEIN, SERUM 5.9 g/dL (6.0-8.3); UREA NITROGEN, BLOOD 16.0 mg/dL (7-18)
[2025-08-14 03:25] VITALS: BP 111/80; PULSE 79; RESP 18; TEMP 98
[2025-08-14 08:00] VITALS: O2SAT 97
[2025-08-14 08:14] VITALS: BP 96/60; PULSE 70; TEMP 98.4
[2025-08-14] MEDS ORDERED: NALO4SPR NS (10:42)
[2025-08-14] MEDS ORDERED: PHEN-846 PO (10:42)
[2025-08-14] MEDS ORDERED: TRAM50TA4 PO (10:42)
[2025-08-14] MEDS ORDERED: TAMS-55 PO (10:52)
--- NOTE | 2025-08-14 11:45 | NUR ---
DISCHARGE PENDING MILL WASHER reported that patient is requesting to speak with physician prior to discharge. Nurse will speak with patient and notify physician.
--- NOTE | 2025-08-14 12:00 | NUR ---
NURSING NOTE: DISCHARGE PENDING Patient stated that pain medication that was called into pharmacy cannot be filled as they will only accept a 7 day prescription. Tramadol dose on hand available is 50mg. Patient has orders for 25mg. Nurse will contact pharmacy and Dr. Trevino to ensure patient has pain medication available at discharge.
--- NOTE | 2025-08-14 12:39 | DS ---
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 Seen and examined patient in the ER awake,alert and coherent ,appears uncomfortable continue to complain of 5/10 pain level to right flank area. Patient denies fever, chills, vomiting, chest pain, palpitation and shortness of breaths. Latest vital signs temperature 98.2, heart rate 88, blood pressure 131/68 saturation 100% on room air. Labs: WBC four, hemoglobin 12, hematocrit 38 platelet count 284. Chemistry is normal. Urinalysis remarkable appearance is cloudy, large urine occult blood, urine RBC 51-100 & urine WBC 11-25. Abdomen and pelvis without contrast result revealed left pelviureteric junction calculus 0.7 causing mild left hydronephrosis. Bilateral kidney stones. The ER patient received 1 L NS bolus, Toradol 30 mg IV Zosyn. We will admit patient for further medical management. HOSPITAL COURSE 08/13 patient is seen and examined at bedside, case discussed with the RN, no acute events overnight, the time of my visit she is comfortably in bed, alert oriented x3, getting IV fluids, IV antibiotics. Results of CT of the abdomen reviewed, discussed with the patient in detail, all questions answered, the patient understood the information provided. Urology has been consulted, we will follow input and recommendations. CT abdomen and pelvis reported as follows: IMPRESSION * Left pelviureteric junction calculus (0.7 cm) causing mild left hydronephrosis. * Bilatral kidney stones 08/14 TODAY THE PATIENT IS ALERT ORIENTED X3, HEMODYNAMICALLY STABLE, NO ACUTE EVENTS OVERNIGHT, PATIENT EVALUATED BY UROLOGIST, PLAN FOLLOWS: 1. We had a long conversation today about natural progression of these kinds of intermittently obstructing UPJ calculi. We talked about treatment options. Patient is interested in stone treatment. Shockwave lithotripsy even though not 100% successful, is a good starting point as it has a very minimal risk as opposed to instrumentation via ureteroscopy. At this point we will be planning to put patient on the schedule for shockwave lithotripsy at one of the facilities in [place] next week. 2. In order for patient to leave the hospital she would need an adequate amount of pain medication supplies, a mixture of narcotics and NSAIDs such as Ketoralac, tamsulosin, Levsin etcetera. 3. Thank you for involving us in the care of this patient. Electrical Engineering Professor(s): UROLOGIST Assessment/Plan: FINAL DIAGNOSIS Bilateral kidney stones with left hydronephrosis POA Intractable right flank pain POA Suspected urinary tract infection POA Hypertension POA Depression POA Discharge Instructions: THE PATIENT TO FOLLOW UP WITH THE UROLOGIST AN OUTPATIENT RETURN TO THE HOSPITAL IF CONDITION CHANGES. PATIENT AGREED AND UNDERSTOOD THE INFORMATION PROVIDED. Home Medications: Active Scripts Tramadol Hcl (Tramadol HCl) 50 Mg Tablet, 25 MG PO Q6H PRN for MODERATE PAIN (4- 6) for 7 Days, #28 TAB 0 Refills Prov:LUTHER HAMPTON MD 08/14/25 Reported Medications Ca Carbonate/Vitamin D3/Vit K (Citracal Soft Chew) 500 Mg Calcium-1,000 Unit-40 Mcg Tab.chew, 1 EACH PO DAILY, TAB.CHEW 08/13/25 Vit B Comp/Folic/Choline/Inosi (Super B-50 Complex Capsule) 400 Mcg-20 Mg-50 Mg Capsule, 1 EACH PO DAILY, CAP 08/13/25 Cholecalciferol (Vitamin D3) (Vitamin D3 Max) 125 Mcg (5000 Unit) Capsule, 1 CAP PO DAILY for 30 Days, #30 CAP 0 Refills 08/13/25 Vitamin A (Vitamin A) 2,400 Mcg Capsule, 2400 MCG PO AM, CAP 08/13/25 Vit C/E/Zn/Coppr/Lutein/Zeaxan (Preservision Areds 2 Softgel) 250MG-90MG Capsule, 1 EACH PO BIDAC, CAP 08/13/25 Docusate Sodium (Colace) 100 Mg Capsule, 100 MG PO DAILY, CAP 08/13/25 Multivitamin/Iron/Folic Acid (Centrum Complete Multivit Tab) 18 Mg Iron-400 Mcg Tablet, 1 EACH PO DAILY, TAB 08/13/25 Progesterone,Micronized (Progesterone) 200 Mg Capsule, 200 MG PO PM, CAP 08/13/25 Estradiol (Estradiol) 0.05 Mg/24 Hour Patch.tdwk, 1 PATCH TD QWEEK for 28 Days, #4 PATCH 0 Refills 08/13/25 Rimegepant Sulfate (Nurtec Odt) 75 Mg Tab.rapdis, 75 MG PO DAILY, TAB 08/13/25 Erenumab-Aooe (Aimovig Autoinjector) 140 Mg/Ml Auto.injct, 1 SYR SQ QMONTH for 30 Days, #1 ML 0 Refills 08/13/25 Metoprolol Succinate (Metoprolol Succinate) 25 Mg Tab.er.24h, 25 MG PO AM, TAB 08/13/25 Buspirone HCl (Buspirone HCl) 30 Mg Tablet, 30 MG PO BID, TAB 08/13/25 Duloxetine HCl (Duloxetine HCl) 60 Mg Capsule.dr, 60 MG PO AM, CAP 08/13/25 Bupropion HCl (Bupropion Xl) 150 Mg Tab.er.24h, 150 MG PO AM, TAB 08/13/25 Viloxazine HCl (Qelbree) 150 Mg Cap.er.24h, 150 MG PO PM, CAPSULE. 08/13/25 Dextroamphetamine/Amphetamine (Adderall Xr 30 mg Capsule) 30 Mg Cap.er.24h, 30 MG PO AM, CAPSULE. 08/13/25 Time spent arranging discharge: 31-60 minutes LUTHER HAMPTON MD Aug 14, 2025 12:38
[2025-08-14 13:23] VITALS: BP 98/63; PULSE 78; RESP 16; TEMP 98.8
--- NOTE | 2025-08-14 14:59 | NUR ---
NURSING NOTE: DISCHARGE Nurse able to speak with both pharmacy and Dr. Trevino. Pharmacy contacted by nurse to change number of tabs to dispense. Patient notified.
--- NOTE | 2025-08-14 15:30 | NUR ---
NURSING NOTE Discharge paperwork about to be reviewed by nurse when patient asked about paperwork that she would like to e-mail to someone for work clearance. Charge nurse notified and advised that these particular papers would be filled out by her primary care physician. Patient verbalized understanding.
--- NOTE | 2025-08-14 15:40 | NUR ---
NURSING NOTE: DISCHARGE TEACHING Discharge teaching on prescribed medications being reviewed with patient. Patient upset that there is prescription for Naloxone and is worried that it will be on record with her insurance. Gave patient option to refuse the medication at pharmacy, but patient wants to ensure that this will not be on record with her insurance. Will consult with Charge nurse, physician and follow up with patient.
--- NOTE | 2025-08-14 15:48 | NUR ---
NURSE PHONED DR. HAMPTON REGARDING NALOXONE NASAL SPRAY Patient has verbalized that she does not want Naloxone nasal spray sent to her pharmacy. Teaching performed on indications for use, and risks associated. Patient verbalized understanding. Pharmacy will be contacted to cancel prescription.
== END 2025-08-14 16:30 | disposition home or self-care (01) | DRG 690 ==
LOC: EDH 16:25 → EDHIP 19:58 → 4AH 08-13 00:28
PROVIDERS: ADMIT Hospitalist; ATTEND Hospitalist
DX: N13.6 Pyonephrosis (principal); F32.A Depression, unspecified; I10 Essential (primary) hypertension; G43.909 Migraine, unspecified, not intractable, without status migrainosus; Z90.711 Acquired absence of uterus with remaining cervical stump; Z90.710 Acquired absence of both cervix and uterus; Z79.899 Other long term (current) drug therapy
CPT/HCPCS: 36415; 74176; 80048; 80053; 81001; 83735; 85025; 85027; 85610; 85730; 87086; 99285; G0378; J0696; J1885; J7030